=== PATIENT | female | born 1960 | race Caucasian/White ===

== ENCOUNTER 2024-08-26 16:00 | Outpatient (RCR) | payer BC, SELFPAY | END 2024-08-26 23:59 | disposition home or self-care (01) | LOC: PT 16:00 | PROVIDERS: Visit Provider Physician Assistant Medical | DX: M25.511 Pain in right shoulder (principal); M25.512 Pain in left shoulder; M25.521 Pain in right elbow; M25.522 Pain in left elbow; M79.10 Myalgia, unspecified site | CPT/HCPCS: 97110; 97163; 97164; 97530 ==

== ENCOUNTER 2025-01-08 10:00 | Outpatient (RCR) | payer MEDICARE, BC, SELFPAY | END 2025-01-08 23:59 | disposition home or self-care (01) | LOC: PT.CARL 10:00 | PROVIDERS: Visit Provider Physician Assistant | DX: M54.16 Radiculopathy, lumbar region (principal) | CPT/HCPCS: 97110; 97112; 97140; 97162 ==

== ENCOUNTER 2025-02-05 10:04 | Outpatient (RCR) | payer MEDICARE, BC, SELFPAY | END 2025-02-10 10:17 | disposition home or self-care (01) | LOC: PT.CARL 10:04 | PROVIDERS: Visit Provider Physician Assistant | DX: M54.16 Radiculopathy, lumbar region (principal); M51.26 Other intervertebral disc displacement, lumbar region | CPT/HCPCS: 97110 ==